=== PATIENT | male | born 1970 | race Hispanic/Latino ===

== ENCOUNTER 2022-06-02 08:46 | Emergency (ER) | payer MEDICARE ==
[~2022-06-02] VITALS: Ht 172.7 cm; Wt 90.7 kg
[2022-06-02 08:59] VITALS: BP 134/103
[2022-06-02 09:20] LABS: BASOPHILS % (AUTO) 0.2 % (0.0-5.0); EOSINOPHILS % (AUTO) 0.4 % (0.0-8.0); HEMATOCRIT 48.8 % (42-54); LYMPHOCYTES % (AUTO) 6.1 % (21.0-51.0); MEAN CORPUSCULAR HEMOGLOBIN 30.7 pg (27.0-33.0); MEAN CORPUSCULAR VOLUME 87.6 fL (79-99); MONOCYTES % (AUTO) 4.7 % (3.0-13.0); NEUTROPHILS % (AUTO) 88.2 % (40.0-77.0); PLATELET COUNT (AUTO) 371 K/uL (130-400); RED BLOOD CELL COUNT(AUTO) 5.57 MIL/uL (4.50-6.20); RED CELL DISTRIBUTION WIDTH 12.7 % (11.0-15.5); WHITE BLOOD COUNT (AUTO) 20.5 K/uL (4.8-10.8)
[2022-06-02] MEDS ORDERED: ONDANSETRON 4MG TABLET PO ONE (09:30)
[2022-06-02] MEDS ORDERED: 0.9%NACL 1000ML 1,000 ML IV ONE ×2 (09:30→11:30)
[2022-06-02] MEDS ORDERED: MORPHINE 4 MG SYG IVP ONE (09:30)
[2022-06-02] MEDS ORDERED: ONDANSETRON 4MG INJ ONE (09:33)
[2022-06-02 09:38] LABS: CREATININE 1.1 mg/dL (0.5-1.5); POTASSIUM 4.2 mmol/L (3.5-5.1)
[2022-06-02 09:42] LABS: ALBUMIN 4.2 g/dL (3.5-5.0); TOTAL PROTEIN, SERUM 8.4 g/dL (6.0-8.3)
[2022-06-02] MEDS ORDERED: MAG/ALUM/SIMETH 30 ML UDCUP PO ONE ×2 (11:00→11:30)
[2022-06-02] MEDS ORDERED: LIDOCAINE HCL 2% VISCOUS 15 ML UDCUP PO ONE ×2 (11:00→11:30)
[2022-06-02] MEDS ORDERED: DICYCLOMINE HCL 10 MG/5 ML ML PO ONE ×2 (11:00→11:30)
[2022-06-02] MEDS ORDERED: KETOROLAC 30MG VIAL (30MG/ML) IVP ONE (11:30)
[2022-06-02] MEDS ORDERED: LORAZEPAM 2 MG/ML 1 ML VIAL IVP ONE (11:30)
[2022-06-02] MEDS ORDERED: PANT40TA PO (13:03)
[2022-06-02] MEDS ORDERED: HYOS0.124 SL (13:03)
[2022-06-02] MEDS ORDERED: ONDA4TAB10 PO (13:03)
== END 2022-06-02 13:29 | disposition home or self-care (01) ==
LOC: EDH 08:46
DX: D72.829 Elevated white blood cell count, unspecified (principal); E86.9 Volume depletion, unspecified; R10.10 Upper abdominal pain, unspecified; R11.10 Vomiting, unspecified; Z90.49 Acquired absence of other specified parts of digestive tract
CPT/HCPCS: 99285; 74176; 96374; 96361; 96375; 71045; 84484; 80053; 83690; 85025; 36415; 93005; J7030 ×2; J2405; J2060; J2270; J1885